=== PATIENT | female | born 1975 | race Asian ===

== ENCOUNTER 2020-06-09 09:03 | Outpatient (CLI) | payer OTHER, SELFPAY ==
--- NOTE | 2020-06-09 09:05 | MM_ITS ---
WS: [id number] BILATERAL SCREENING DIGITAL MAMMOGRAM WITH CAD HISTORY: SCREENING COMPARISON: 08/16/2016 Bilateral CC and MLO views submitted. Computer aided detection analyzed. Breast composition: The breasts are heterogeneously dense, which may obscure small masses. No suspici ous masses, microcalcifications or architectural distortion. MM/[id number] IMPRESSION: BI-RADS: 1-Negative FOLLOW UP: 1 Year Follow-up
== END 2020-06-09 09:04 | disposition home or self-care (01) ==
LOC: RADSHAW 09:04
PROVIDERS: PCP Nurse Practitioner Family; Visit Provider Nurse Practitioner Family
DX: Z12.31 Encounter for screening mammogram for malignant neoplasm of breast (principal)
CPT/HCPCS: 77067

== ENCOUNTER 2021-09-30 08:01 | Outpatient (CLI) | payer OTHER, SELFPAY ==
--- NOTE | 2021-09-30 08:10 | MM_ITS ---
WS: [id number] BILATERAL 3D TOMOSYNTHESIS DIGITAL SCREENING MAMMOGRAPHY WITH CAD CLINICAL INFORMATION: SCREENING HISTORY: Screening mammogram. No current complaints. COMPARISON: June 09, 2020 TECHNIQUE: Bilateral CC and MLO views. FINDINGS: The breasts are composed of heterogeneous fibroglandular density tissue, which can limit the detectio n of small underlying mass lesions. No suspicious mass, asymmetry, calcifications, or architectural d istortion. No evidence of malignancy. MM/[place] [id number] IMPRESSION: BI-RADS: 1-Negative FOLLOW UP: 1 Year Follow-up Recommend return to annual screening mammography.
== END 2021-09-30 08:02 | disposition home or self-care (01) ==
LOC: RAD 08:03
PROVIDERS: PCP Nurse Practitioner Family; Visit Provider Nurse Practitioner Family
DX: Z12.31 Encounter for screening mammogram for malignant neoplasm of breast (principal)
CPT/HCPCS: 77063; 77067

== ENCOUNTER 2023-11-23 11:18 | Outpatient (CLI) | payer OTHER, SELFPAY ==
--- NOTE | 2023-11-23 11:24 | MM_ITS ---
WS: [id number] BILATERAL SCREENING DIGITAL TOMOSYNTHESIS MAMMOGRAM WITH CAD HISTORY: SCREENING COMPARISON: 09/30/2021, 06/09/2020 Bilateral CC and MLO views with tomosynthesis and synthetic mammography submitted. Computer aided det ection analyzed. Breast composition: The breasts are heterogeneously dense, which may obscure small masses. No suspici ous masses, microcalcifications or architectural distortion. MM/[place] [id number] IMPRESSION: BI-RADS: 1-Negative FOLLOW UP: 1 Year Follow-up
== END 2023-11-23 11:19 | disposition home or self-care (01) ==
LOC: RAD 11:18
PROVIDERS: PCP Nurse Practitioner Family; Visit Provider Nurse Practitioner Family
DX: Z12.31 Encounter for screening mammogram for malignant neoplasm of breast (principal); R92.333 Mammographic heterogeneous density, bilateral breasts
CPT/HCPCS: 77063; 77067

== ENCOUNTER 2024-01-22 09:20 | Day surgery (SDC) | payer OTHER, SELFPAY ==
[2024-01-22 09:32] VITALS: BP 141/106; PULSE 97; RESP 16; TEMP 36.1; O2SAT 99; BMI 28.2
--- NOTE | 2024-01-22 09:46 | ANES.PREANE2 ---
Pre-Anesthetic Assessment Height/Weight: Height 1.47 m Weight 61.235 kg Temp Pulse Resp BP Pulse Ox O2 Del Method 97 F L 97 16 141/106 99 Room Air 01/22/24 09:32 01/22/24 09:32 01/22/24 09:32 01/22/24 09:32 01/22/24 09:32 01/22/24 09:32 Operation Date: 01/22/24 10:30 Proposed Procedures p Colonoscopy 31394, G0121, Z12.11(Not Applicable) - Molina Corrigan MD Familial anesthetic complications: None Was Beta Martha taken within 24 hours: N/A Was Clonidine taken within 24 hours: N/A Last intake: Intake Last Liquid Date 01/21/24 Last Liquid Time 21:00 Last Solid Date 01/20/24 Last Solid Time 18:00 Social No alcohol and No tobacco Exam alert, oriented x 3, clear to auscultation bilaterally and regular rate & rhythm Airway Mallampati: Class I Dentition: partials CV/HEM Hypertension Anesthetic Plan ASA status: 2 Anesthesia: MAC Risk of > 500 ml blood loss (7ml/kg in children): No Medications/Allergies Home Medications Medication Instructions Recorded Confirmed Last Taken Type hydrochlorothiazide 12.5 mg tablet 12.5 mg PO DAILY 03/18/23 01/22/24 01/21/24 History lisinopril 20 mg tablet 20 mg PO DAILY 03/18/23 01/22/24 01/21/24 History Allergies Allergy/AdvReac Type Severity Reaction Status Date / Time Penicillins Allergy ALGY-Rash Verified 01/15/24 09:19 [facility] Anesthesia Family History (Updated 01/15/24 @ 09:25 by MANDIE Sharma) Unknown Hypertension Social History Smoking and tobacco/nicotine status: never used tobacco/nicotine Data Anesthesia Cardiac Studies: No Data to Display
[2024-01-22] MEDS: sodium chloride 0.9% 1,000 ML 30 ML IV (09:50)
--- NOTE | 2024-01-22 10:05 | P.HPUD_ITS ---
Surgery/Procedure H&P Update DATE OF PROCEDURE: January 22, 2024 DATE H&P PERFORMED: 01/15/24 H&P UPDATE INFORMATION: I have reviewed H&P completed within last 30 days, I have examined patient prior to procedure, No changes to prior documentation and H&P is in [facility] EMR on date indicated PLANNED PROCEDURE: Operation Date: 01/22/24 10:30 Proposed Procedures p Colonoscopy [id number], G0121, Z12.11(Not Applicable) - Molina Corrigan MD
--- NOTE | 2024-01-22 10:05 | W.PM.OPSUD ---
Surgery/Procedure H&P Update DATE OF PROCEDURE: January 22, 2024 DATE H&P PERFORMED: 01/15/24 H&P UPDATE INFORMATION: I have reviewed H&P completed within last 30 days, I have examined patient prior to procedure, No changes to prior documentation and H&P is in [facility] E[place] on date indicated PLANNED PROCEDURE: Operation Date: 01/22/24 10:30 Proposed Procedures p Colonoscopy [id number], G0121, Z12.11(Not Applicable) - Molina Corrigan MD
[2024-01-22 10:33] VITALS: BP 88/66; PULSE 94; RESP 20; TEMP 36.3; O2SAT 95
--- NOTE | 2024-01-22 10:40 | ANE.PACU2 ---
Inpatient post-anesthesia follow up: Airway intact: Yes Vital signs: Temperature 97.3 F Pulse Rate 94 Respiratory Rate 20 Blood Pressure 88/66 Pulse Oximetry 95 Oxygen Delivery Me thod Room Air Oxygen Flow Rate Fraction of Inspir ed Oxygen Hydration adequate: Yes Nausea and vomiting: No Pain level: 1 Mental status: Baseline
[2024-01-22 10:49] VITALS: BP 97/68; PULSE 93; RESP 18; O2SAT 97
== END 2024-01-22 11:10 | disposition home or self-care (01) ==
PROVIDERS: PCP Nurse Practitioner Family; Visit Provider Surgery
PROC: 0DJD8ZZ Inspection of Lower Intestinal Tract, Via Natural or Artificial Opening Endoscopic (ICD-10-PCS; CPT 45378; principal; 2024-01-22 10:30)
DX: Z12.11 Encounter for screening for malignant neoplasm of colon (principal); I10 Essential (primary) hypertension
CPT/HCPCS: 45378; J2704; J7030

== ENCOUNTER 2024-05-13 11:05 | Outpatient (CLI) | payer OTHER, SELFPAY ==
--- NOTE | 2024-05-13 11:14 | XR_ITS ---
WS: [id number] RIGHT ANKLE: 2 VIEW(S) TECHNIQUE: AP and lateral. HISTORY: RIGHT ANKLE PAIN COMPARISON: None available. Normal anatomic alignment with no fracture or dislocation. No joint effusion or widening of the ankle mortise. No significant degenerative changes at the joint spaces. No soft tissue abnormality. Small calcaneal spur. XR/XR ankle RT 2V [id number] IMPRESSION: Small calcaneal spur. Otherwise negative.
== END 2024-05-13 11:06 | disposition home or self-care (01) ==
LOC: RAD 11:07
PROVIDERS: PCP Nurse Practitioner Family; Visit Provider Nurse Practitioner Family
DX: M25.571 Pain in right ankle and joints of right foot (principal); M77.31 Calcaneal spur, right foot
CPT/HCPCS: 73600

== ENCOUNTER 2025-01-02 11:05 | Outpatient (CLI) | payer OTHER, SELFPAY ==
--- NOTE | 2025-01-02 11:13 | XR_ITS ---
WS: [id number] Right knee, 3 views, 01/02/2025 Clinical Data: R KNEE PAIN Comparison: None. Findings: No fractures or dislocations are seen. The joint spaces are normal. The patella shows a small posterior superior spur. The soft tissues are unremarkable. XR/XR knee RT 3V* [id number] Impression: Small posterior superior right patellar spur
== END 2025-01-02 11:06 | disposition home or self-care (01) ==
PROVIDERS: PCP Nurse Practitioner Family; Visit Provider Nurse Practitioner Family
DX: M25.761 Osteophyte, right knee (principal)
CPT/HCPCS: 73562

== ENCOUNTER 2025-01-28 10:57 | Outpatient (CLI) | payer OTHER, SELFPAY | END 2025-01-28 10:58 | disposition home or self-care (01) | LOC: SPT 10:58 | PROVIDERS: PCP Nurse Practitioner Family; Visit Provider Student in an Organized Health Care Education/Training Program | DX: Z46.89 Encounter for fitting and adjustment of other specified devices (principal); M17.11 Unilateral primary osteoarthritis, right knee | CPT/HCPCS: L1812 ==